=== PATIENT | female | born 1945 | race Caucasian/White ===

== ENCOUNTER 2025-01-26 12:50 | Emergency (ER) | payer MEDICARE, OTHER, SELFPAY ==
[2025-01-26] VITALS (10 sets, daily range): BP systolic 155–221; BP diastolic 81–131; PULSE 77–112; RESP 13–21; TEMP 36.7–36.8; O2SAT 94–98; BMI 33.2
--- NOTE | 2025-01-26 13:08 | XR_ITS ---
FINAL REPORT CLINICAL HISTORY: Shortness of breath COMPARISON: None FINDINGS: CHEST 1 VIEW The heart is at the upper limits of normal in size. The mediastinum is normal. The lungs are underinflated. There is no focal infiltrate or edema. There are no pleural effusions. There is no pneumothorax. There is no osseous abnormality. IMPRESSION: No acute cardiopulmonary process Reviewed, Interpreted and Dictated by Arpit Deluna MD Transcribed by Sima Hartman Authenticated and [facility]
--- NOTE | 2025-01-26 13:10 | HMH.EDGENADL ---
Discharge Plan Disposition Patient Disposition: Home, Self-Care Referrals Follow up/Referrals: Bright Hooker MD [Primary Care Provider] - See instructions Activity Restrictions/Add. Instructions Additional Instructions/Restrictions: He was seen today and had a diagnosis of high blood pressure/hypertension. I would recommend restarting your Toprol that was discontinued recently. Continue taking her hydralazine as ordered. Monitor your blood pressure closely as you have been doing. Follow-up with your pick pack worker and primary care physician in the next week. Return to the ED for any worsening symptoms, shortness of breath, chest pain, ETEC. Clinical Impressions Clinical Impression: Hypertension Instructions Patient Instructions: High Blood Pressure Print Language Print Language: [place] Discharge ED Provider: David Lange General Adult HPI <Carina Victor APRN - Last Filed: 01/26/25 16:32> General Chief complaint: Recheck/Abnormal Lab/Rx Stated complaint: high blood pressure shaky dizzy soa Time Seen by Provider: 01/26/25 13:07 History of Present Illness HPI narrative: Tegan Hi is an 79-year-old female who presents emergency room today with complaints of elevated blood pressure and shortness of breath.States that she was recently taken off of her Toprol and switched over to hydralazine only. Reports that she took a dose of her hydralazine this morning but her blood pressure continued to read high. States it was over 200 systolic. Does report some shortness of breath associated with it. No chest pain noted. Denies any fever, cough, abdominal pain. No dysuria or hematuria noted. Does not wear oxygen at home. Denies any upper respiratory symptoms. No other complaints at this time. Please note that the above description of symptoms, and this electronic medical record under categorization of recalled from ER triage doctor by RN are reflective of an initial nursing assessment, however, is not reflective of my full history and physical exam that was personally taken and clarified. Consequentially, this proceeding description of symptoms, which may include the patient's cauterized chief complaint in the EMR, do not reflect my personal clinical impression, and the ultimate description of the history of present illness stated complaints should be deferred to this section of this note. Unless stated otherwise were congruent with the section of the note, additional signs, symptoms, or incongruence can be interpreted as in or accurate with my clinical impression. Related Data Allergies Allergy/AdvReac Type Severity Reaction Status Date / Time Sulfa (Sulfonamide Allergy Hives Verified 01/26/25 13:26 Antibiotics) [facility] <Carina Victor APRN - Last Filed: 01/26/25 16:32> [facility] Disclaimer: The information contained in this section may have been updated after the patient was seen, as this information can be updated by other users. Social History (Updated 01/26/25 @ 16:32 by Carina Victor APRN) Smoking Status: Never smoker alcohol intake: never current occupational status: previously employed Travel in the last 8 weeks?: None Have you lived/traveled outside [place] in past 30 days?: No Contact w/someone who lives/traveled outside US past 30 days?: No Exposure to someone with infectious disease in past 14 days?: No Do you have a fever (greater than 100.4 F or 38 C)?: No Have you tested positive for COVID-19?: No Exposed to someone with COVID-19 in past 14 days?: No Do you have a sore throat?: No Do you have a cough?: No Do you have any weakness?: No Do you have any diarrhea?: No Are you experiencing any unusual bleeding?: No Do you have any muscle aches/pain?: No Do you have any abdominal pain?: No Are you experiencing loss of taste or smell?: No <Carina Victor APRN - Last Filed: 01/26/25 16:32> ROS Obtained: Yes Systems reviewed as appropriate & no additional complaints except as documented Physical Exam <Carina Victor APRN - Last Filed: 01/26/25 16:32> General General appearance: alert and in no apparent distress Head Head exam: atraumatic and normocephalic Eye Eye exam: Present PERRL and EOMI Chest Chest inspection: Present symmetric chest wall rise Respiratory Respiratory exam: Present normal lung sounds bilaterally Cardiovascular Cardiovascular exam: Present regular rate and normal rhythm Abdominal Exam Abdominal exam: Present soft and normal bowel sounds; Absent tenderness Extremities Exam Extremities exam: Present full ROM Neurological Exam Neurological exam: Present alert and oriented X3 Skin Skin exam: Present warm, dry and intact Medical Decision Making <Carina Victor APRN - Last Filed: 01/26/25 16:32> Medical Records Screening: Per USPSTF and CDC recommendations, given the prevalence of disease in our region, it is our hospital?s policy to screen for HIV and viral Hepatitis for all patients aged 18 and over and those with ongoing risk factors. Dionte Inquiry Pt receiving controlled substance: No Vital Signs: 01/26/25 13:18 01/26/25 13:27 01/26/25 13:30 Temperature 98.0 F Temperature Source Oral Pulse Rate 112 H 110 H Pulse Rate [Left Radial] 111 H Respiratory Rate 20 21 16 Blood Pressure 213/131 H 202/128 H Blood Pressure [Right Arm] 221/125 H Blood Pressure Mean [Right Arm] 157 02 Sat by Pulse Oximetry 97 98 96 Oxygen Delivery Method Room Air 01/26/25 14:00 01/26/25 14:25 01/26/25 14:31 Temperature Temperature Source Pulse Rate 98 H 87 Pulse Rate [Left Radial] Respiratory Rate 16 13 Blood Pressure 191/113 H 190/113 H 157/92 H Blood Pressure [Right Arm] Blood Pressure Mean [Right Arm] 02 Sat by Pulse Oximetry 95 94 L Oxygen Delivery Method 01/26/25 15:00 01/26/25 15:30 01/26/25 16:00 Temperature Temperature Source Pulse Rate 77 87 88 Pulse Rate [Left Radial] Respiratory Rate 15 18 13 Blood Pressure 155/81 H 177/97 H 180/104 H Blood Pressure [Right Arm] Blood Pressure Mean [Right Arm] 02 Sat by Pulse Oximetry 95 96 96 Oxygen Delivery Method Room Air Room Air 01/26/25 16:14 Temperature 98.2 F Temperature Source Pulse Rate 80 Pulse Rate [Left Radial] Respiratory Rate 20 Blood Pressure 180/104 H Blood Pressure [Right Arm] Blood Pressure Mean [Right Arm] 02 Sat by Pulse Oximetry Oxygen Delivery Method Room Air Lab Data Lab Results 01/26/25 13:12: WBC 8.9, RBC 4.11 L, Hgb 11.2 L, Hct 34.7 L, MCV 84.4, MCH 27.3, MCHC 32.3, RDW 14.6, Plt Count 249, MPV 9.7, Neut % (Auto) 66.4, Lymph % (Auto) 24.7, Curry % (Auto) 6.7, Eos % (Auto) 1.8, Baso % (Auto) 0.1, Neut # (Auto) 5.9, Lymph # (Auto) 2.2, Curry # (Auto) 0.6, Eos # (Auto) 0.2, Baso # (Auto) 0.0, Sodium 131 L, Potassium 3.9, Chloride 95 L, Carbon Dioxide 27, Anion Gap 12.9, BUN 18 H, Creatinine 1.70 H, Estimated Creat Clear 32, Estimated GFR 29 L, Est GFR ( Amer) 35 L, Glucose 182 H, Calcium 8.8, Magnesium 1.3 L, Total Bilirubin 0.7, AST 29, ALT 15, Alkaline Phosphatase 171 H, Troponin I 0.03, Total Protein 7.6, Albumin 4.4, Globulin 3.2, Albumin/Globulin Ratio 1.4 01/26/25 13:12 01/26/25 13:12 Orders (Tests/Meds): ED MEDICATIONS Discontinued Medications Generic Name Dose Route Start Last Admin Trade Name Freq PRN Reason Stop Dose Admin Hydralazine HCl 10 mg 01/26/25 13:08 01/26/25 13:22 Hydralazine 20mg/Ml Vial IV 01/26/25 13:09 10 mg ONCE ONE Administration Labetalol HCl 10 mg 01/26/25 14:24 01/26/25 14:25 Labetalol 20mg/4ml Syringe IV 01/26/25 14:25 10 mg ONCE ONE Administration Magnesium Oxide 400 mg 01/26/25 16:11 01/26/25 16:13 Magnesium Oxide 400mg Tablet PO 01/26/25 16:12 400 mg ONCE ONE Administration ORDERS Category Date Time Status CXR --portable [XR chest portable] Stat Exams 01/26/25 13:08 Completed CBC w/Auto Diff [Complete Blood Count Auto Diff] Stat Lab 01/26/25 13:12 Completed CMP [Comprehensive Metabolic Panel] Stat Lab 01/26/25 13:12 Completed Magnesium Stat Lab 01/26/25 13:12 Completed Trop I [Troponin I] Stat Lab 01/26/25 13:12 Completed ECG Request Stat Y 01/26/25 13:08 Stop Req Medical Decision Narrative: In summary patient is an 79-year-old female who presents emergency department for evaluation of shortness of breath and elevated blood pressure. Patient is hemodynamically stable but hypertensive, blood pressure running 220s over 100s upon arrival, afebrile. Unremarkable physical exam, SpO2 sats in the upper 90s on room air, no increased work of breathing. Differential diagnosis includes pneumonia, ACS, hypertensive urgency, versus accelerated hypertension. Initial workup will be conducted with hematologic labs to include troponin, chest x-ray, EKG. Initial interventions include IV labetalol and IV hydralazine. Initial workup reviewed by me labs consistent with chronic kidney disease stage III which is stable according to the patient, mag a bit low at 1.3. Chest x-ray was informally read by myself, showed no acute process. EKG shows a left bundle branch block, have no prior EKG to compare this to. site monitor shows sinus rhythm with a heart rate in the 80s. Patient on room air with SpO2 in upper 90s. Patient has no chest pain and is not complaining of any shortness of breath at this time. Upon repeat evaluation patient had an acceptable resolution to symptoms including a decrease in blood pressure after initiation of IV hydralazine and IV labetalol. SBP down into the 150s. Patient reports that she feels much better after her blood pressure resolved/decreased. Denies any shortness of breath or chest pain at this time. Magnesium was also replaced p.o.. Given this patient was appropriate for discharge at this time and will be discharged to restart her home Toprol dose. Patient keeps a great log of her blood pressures at home. She knows that if her blood pressure has a systolic less than 100, she will not take both of her blood pressure medications. She understands that she can take half of her dose of Toprol if she notes her blood pressure is running too low. She should follow-up with her pick pack worker and primary care physician in the next week. Return precautions were given to include if she has any worsening shortness of breath, chest pain, fever. <David Lange MD - Last Filed: 01/27/25 07:36> Vital Signs: 01/26/25 13:18 01/26/25 13:27 01/26/25 13:30 Temperature 98.0 F Temperature Source Oral Pulse Rate 112 H 110 H Pulse Rate [Left Radial] 111 H Respiratory Rate 20 21 16 Blood Pressure 213/131 H 202/128 H Blood Pressure [Right Arm] 221/125 H Blood Pressure Mean [Right Arm] 157 02 Sat by Pulse Oximetry 97 98 96 Oxygen Delivery Method Room Air 01/26/25 14:00 01/26/25 14:25 01/26/25 14:31 Temperature Temperature Source Pulse Rate 98 H 87 Pulse Rate [Left Radial] Respiratory Rate 16 13 Blood Pressure 191/113 H 190/113 H 157/92 H Blood Pressure [Right Arm] Blood Pressure Mean [Right Arm] 02 Sat by Pulse Oximetry 95 94 L Oxygen Delivery Method 01/26/25 15:00 01/26/25 15:30 01/26/25 16:00 Temperature Temperature Source Pulse Rate 77 87 88 Pulse Rate [Left Radial] Respiratory Rate 15 18 13 Blood Pressure 155/81 H 177/97 H 180/104 H Blood Pressure [Right Arm] Blood Pressure Mean [Right Arm] 02 Sat by Pulse Oximetry 95 96 96 Oxygen Delivery Method Room Air Room Air 01/26/25 16:14 Temperature 98.2 F Temperature Source Pulse Rate 80 Pulse Rate [Left Radial] Respiratory Rate 20 Blood Pressure 180/104 H Blood Pressure [Right Arm] Blood Pressure Mean [Right Arm] 02 Sat by Pulse Oximetry Oxygen Delivery Method Room Air Lab Data Lab Results 01/26/25 13:12: WBC 8.9, RBC 4.11 L, Hgb 11.2 L, Hct 34.7 L, MCV 84.4, MCH 27.3, MCHC 32.3, RDW 14.6, Plt Count 249, MPV 9.7, Neut % (Auto) 66.4, Lymph % (Auto) 24.7, Curry % (Auto) 6.7, Eos % (Auto) 1.8, Baso % (Auto) 0.1, Neut # (Auto) 5.9, Lymph # (Auto) 2.2, Curry # (Auto) 0.6, Eos # (Auto) 0.2, Baso # (Auto) 0.0, Sodium 131 L, Potassium 3.9, Chloride 95 L, Carbon Dioxide 27, Anion Gap 12.9, BUN 18 H, Creatinine 1.70 H, Estimated Creat Clear 32, Estimated GFR 29 L, Est GFR ( Amer) 35 L, Glucose 182 H, Calcium 8.8, Magnesium 1.3 L, Total Bilirubin 0.7, AST 29, ALT 15, Alkaline Phosphatase 171 H, Troponin I 0.03, Total Protein 7.6, Albumin 4.4, Globulin 3.2, Albumin/Globulin Ratio 1.4 Orders (Tests/Meds): ED MEDICATIONS Discontinued Medications Generic Name Dose Route Start Last Admin Trade Name Tommy PRN Reason Stop Dose Admin Hydralazine HCl 10 mg 01/26/25 13:08 01/26/25 13:22 Hydralazine 20mg/Ml Vial IV 01/26/25 13:09 10 mg ONCE ONE Administration Labetalol HCl 10 mg 01/26/25 14:24 01/26/25 14:25 Labetalol 20mg/4ml Syringe IV 01/26/25 14:25 10 mg ONCE ONE Administration Magnesium Oxide 400 mg 01/26/25 16:11 01/26/25 16:13 Magnesium Oxide 400mg Tablet PO 01/26/25 16:12 400 mg ONCE ONE Administration ORDERS Category Date Time Status CXR --portable [XR chest portable] Stat Exams 01/26/25 13:08 Completed CBC w/Auto Diff [Complete Blood Count Auto Diff] Stat Lab 01/26/25 13:12 Completed CMP [Comprehensive Metabolic Panel] Stat Lab 01/26/25 13:12 Completed Magnesium Stat Lab 01/26/25 13:12 Completed Trop I [Troponin I] Stat Lab 01/26/25 13:12 Completed ECG Request Stat Y 01/26/25 13:08 Stop Req ECG Data Tracing #1: I reviewed this ECG and interpreted as documented below: (Left bundle branch block what appears to be sinus rhythm 108 bpm with VA interval about 180 ms, QRS 176, QTc 481. Sgarbossa negative no acute ischemic change) Medical Decision Narrative: In summary patient is an 79-year-old female who presents emergency department for evaluation of shortness of breath and elevated blood pressure. Patient is hemodynamically stable but hypertensive, blood pressure running 220s over 100s upon arrival, afebrile. Unremarkable physical exam, SpO2 sats in the upper 90s on room air, no increased work of breathing. Differential diagnosis includes pneumonia, ACS, hypertensive urgency, versus accelerated hypertension. Initial workup will be conducted with hematologic labs to include troponin, chest x-ray, EKG. Initial interventions include IV labetalol and IV hydralazine. Initial workup reviewed by me labs consistent with chronic kidney disease stage III which is stable according to the patient, mag a bit low at 1.3. Chest x-ray was informally read by myself, showed no acute process. EKG shows a left bundle branch block, have no prior EKG to compare this to. site monitor shows sinus rhythm with a heart rate in the 80s. Patient on room air with SpO2 in upper 90s. Patient has no chest pain and is not complaining of any shortness of breath at this time. Upon repeat evaluation patient had an acceptable resolution to symptoms including a decrease in blood pressure after initiation of IV hydralazine and IV labetalol. SBP down into the 150s. Patient reports that she feels much better after her blood pressure resolved/decreased. Denies any shortness of breath or chest pain at this time. Magnesium was also replaced p.o.. Given this patient was appropriate for discharge at this time and will be discharged to restart her home Toprol dose. Patient keeps a great log of her blood pressures at home. She knows that if her blood pressure has a systolic less than 100, she will not take both of her blood pressure medications. She understands that she can take half of her dose of Toprol if she notes her blood pressure is running too low. She should follow-up with her pick pack worker and primary care physician in the next week. Return precautions were given to include if she has any worsening shortness of breath, chest pain, fever. I was consulted by the GINO, and we discussed the complexity of the problems being addressed. I approved the treatment and management plan for this patient's care in the Emergency Department, thus performing a substantive portion of the medical decision making. David Lange MD Critical Care <Carina Victor APRN - Last Filed: 01/26/25 16:32> Critical Care Time Critical Care Time: No
--- NOTE | 2025-01-26 13:16 | ECG_ITS ---
APPROVED REPORT Exam: Resting ECG HR:108 bpm ECG Measurements Heart Rate 108 AXES QRSd 176 QRS -22 QT 417 T 125 QTc 481 Conclusion Sinus rhythm Left bundle branch block morphology Sgarbossa negative Electronically signed by : MARTÍNEZ GUY, 01/27/2025 08:21:05
[2025-01-26 13:20] LABS: Basophils % 0.1 % (0.1-2.0); Eosinophils # 0.2 Kmm3 (0.0-0.4); Eosinophils % 1.8 % (0.1-12.0); Hematocrit 34.7 % (37.0-47.0); Hemoglobin 11.2 g/dL (12.2-16.2); Immature Granulocytes # 0.03 10^3uL; Immature Granulocytes % 0.3 %; Lymphocytes # 2.2 K/mm3 (0.7-4.5); Lymphocytes % 24.7 % (10-50); Mean Corpuscular HGB Conc 32.3 g/dL (31.8-35.4); Mean Corpuscular Hemoglobin 27.3 pg (27.0-31.2); Mean Corpuscular Volume 84.4 fl (81-99); Mean Platelet Volume 9.7 fl (7.4-10.4); Monocytes # 0.6 K/mm3 (0.1-1.0); Monocytes % 6.7 % (1.7-9.3); Neutrophils # 5.9 K/mm3 (1.8-7.8); Neutrophils % 66.4 % (37.0-80.0); Nucleated Red Blood Cells # 0 10^3/uL; Nucleated Red Blood Cells % 0 %; Platelet Count 249 K/mm3 (142-424); Red Blood Count 4.11 M/mm3 (4.20-5.40); Red Cell Distribution Width 14.6 % (11.5-17.5); Red Cell Distribution Width-SD 44.9 fL; White Blood Count 8.9 K/mm3 (4.8-10.8)
[2025-01-26] MEDS: HYDRALAZINE 20MG/ML VIAL 10 MG IV (13:22)
[2025-01-26 13:34] LABS: Albumin Level 4.4 g/dl (3.5-5.0); Chloride 95 mmol/L (98-107); Sodium 131 mmol/L (136-145)
[2025-01-26 13:35] LABS: Potassium 3.9 mmoL/L (3.5-5.1)
[2025-01-26 13:37] LABS: Alanine Aminotransferase 15 U/L (12-78); Albumin/Globulin Ratio 1.4 (1.1-1.8); Alkaline Phosphatase 171 U/L (38-126); Anion Gap 12.9 mEq/L (5-15); Aspartate Amino Transferase 29 U/L (14-36); Bilirubin,Total 0.7 mg/dl (0.2-1.3); Blood Urea Nitrogen 18 mg/dl (7-17); Carbon Dioxide 27 mmol/L (22.0-30.0); Creatinine Clearance Estimated 32 mL/min (50-200); Estimated Glomerular Filt Rate 29 ml/min (>60); GFR (African American) 35 ML/MIN (>60); Globulin 3.2 g/dL (1.3-3.2); Total Protein,Serum 7.6 g/dl (6.3-8.2)
[2025-01-26 13:38] LABS: Calcium 8.8 mg/dl (8.4-10.2); Glucose 182 mg/dl (74-100)
[2025-01-26 13:49] LABS: Troponin I 0.03 ng/ml (0.00-0.034)
[2025-01-26] MEDS: LABETALOL 20MG/4ML SYRINGE 10 MG IV (14:25)
[2025-01-26 14:38] LABS: Magnesium 1.3 mg/dl (1.6-2.3)
[2025-01-26] MEDS: MAGNESIUM OXIDE 400MG TABLET 400 MG PO (16:13)
== END 2025-01-26 16:15 | disposition home or self-care (01) ==
PROVIDERS: Nurse Practitioner Acute Care; Emergency Provider Emergency Medicine; PCP Family Medicine
DX: R06.02 Shortness of breath (principal); I10 Essential (primary) hypertension; E87.1 Hypo-osmolality and hyponatremia; I44.7 Left bundle-branch block, unspecified; R42 Dizziness and giddiness
CPT/HCPCS: 71045; 80053; 83735; 84484; 85025; 93005; 96374; 96375; 99284; J0360; J1920